=== PATIENT | male | born 1960 | race Caucasian/White ===

== ENCOUNTER → 2016-05-31 | Outpatient (CLI) | payer OTHER ==
[~2016-05-31] MED LIST: REGADENOSON 0.4 MG/5 ML DISP.SYRIN. IV ONE
== END | disposition home or self-care (01) ==
LOC: PCVCIMAG 10:42
PROVIDERS: ATTEND Internal Medicine Cardiovascular Disease
DX: I25.10 Atherosclerotic heart disease of native coronary artery without angina pectoris (principal); I48.91 Unspecified atrial fibrillation; R53.83 Other fatigue; R06.00 Dyspnea, unspecified
CPT/HCPCS: 78452; 93017; 93306; A9500; J2785

== ENCOUNTER → 2018-06-13 | Outpatient (CLI) | payer OTHER ==
--- NOTE | 2018-06-13 12:15 | PCVCIMAG ---
APPROVED REPORT Study performed: 06/13/2018 10:27:32 Exam: Stress Echocardiogram Indication: CAD , Hypertension, Dyspnea Patient Location: Echo lab Stress Nurse: Karlie Nelson RN Room #: 2 Status: routine Ht: 5 ft 6 in HR: 77 bpm BP: 114/62 mmHg Rhythm: NSR Medical History Medical History: CAD non obstructive, Diabetes, HTN, Hyperlipidemia, Hx myxoma Cardiac Risk Factors: HTN, Hyperlipidemia, DM Previous Cardiac Procedures: myxoma removal Pretest Chest Pain Characteristics: Exertional Chest pain Exercise History: Sedentary Physical Disabilities: Hips Procedure The patient underwent an Exercise Stress Test using the Sharri Protocol. Blood pressure, heart rate, and EKG were monitored. An Echocardiogram was performed by phlebotomy services technician in four stages in quad fashion. At peak stress, four selected images were obtained and placed side by side with resting images for comparison. Stress Test Details Stress Test: Exercise stress testing was performed using a Sharri protocol. HR Resting HR: 77 bpmMax Heart Rate (APMHR): 162 bpm Max HR Achieved: 125 bpmTarget HR (85% APMHR): 137 bpm % of APMHR: 77 Recovery HR: 82 bpm HR response to stress: Normal HR response to stress BP Resting BP: 114/62 mmHg Max BP: 160/84 mmHg Recovery BP: 144/80 mmHg BP response to stress: Normal blood pressure response to stress. ECG Resting ECG: Sinus Rhythm, bigemeny PVCs Stress ECG: Sinus Rhythm ST Change: Non-ischemic Arrhythmia: Bigeeny PVCs at rest, overridden with increased heart rate Recovery ECG: Sinus Rhythm Recovery ST Change: Non-ischemic Recovery Arrhythmia: occasional PVCs Clinical Reason for Termination: Dyspnea, Leg pain/Claudication Stress Symptoms: hip pain,fatigue, dyspnea Exercise duration: 4 min 06 sec Highest Stage Achieved: Stage 2: 2.5 mph at 12% grade. Exercise capacity: 7 METs Overall Exercise Capacity for Age: Poor Scale: Sedentary Angina Score: None No complications. Stress ECG Conclusion The patient exercised according to the SHARRI protocol for 4:06 mins; achieving a work level of 7.0 METS. The resting heart rate of 77 bpm janette to a maximum heart rate of 125 bpm. This value represent 77% of the maximal, age-predicted heart rate. The resting blood pressure of 114/62 mmHg, janette to a maximum blood pressure of 160/84 mmHg. The exercise test was stopped due to hip pain,fatigue . Pre-Stress Echo The resting Echocardiogram showed normal left ventricular contractility with an estimated Ejection Fraction of about 55-60%. Normal wall motion in all segments on baseline images. Septal bounce seen consistent with bigeminal wall motion abnormaality. Post-Stress Echo Normal augmentation of wall motion in all segments on post stress images. Clinical No clinical or ECG evidence for ischemia. Conclusion Clinical Response: Non-ischemic Exercise Capacity: Below Average Stress ECG Response: Non-ischemic Stress Echo Images: Non-ischemic Normal stress echocardiogram with submaximal exercise stress. <Conclusion> Normal stress echocardiogram with submaximal exercise stress.
== END | disposition home or self-care (01) ==
LOC: PCVCIMAG 10:47
PROVIDERS: ATTEND Internal Medicine Cardiovascular Disease
DX: I25.10 Atherosclerotic heart disease of native coronary artery without angina pectoris (principal); E11.9 Type 2 diabetes mellitus without complications; R06.02 Shortness of breath
CPT/HCPCS: 93325; 93351